=== PATIENT | male | born 1935 | race Hispanic/Latino ===

== ENCOUNTER 2016-11-24 10:01 | Outpatient (CLI) | payer MEDICARE, BC ==
[2016-11-24 12:05] LABS: #Basophils 0.1 thou/uL (0.0-0.2); #Eosinphils 0.4 thou/uL (0.0-0.7); #Lymphocytes 2.1 thou/uL (1.20-3.40); #Monocytes 0.6 thou/uL (0.11-0.59); #Neutrophils 3.7 thou/uL (1.40-6.50); %Basophils 1.6 % (0.0-1.0); %Eosinophils 6.4 % (0.0-10.0); %Lymphocytes 30.3 % (21.0-51.0); %Monocytes 8.4 % (0.0-10.0); Hematocrit 50.4 % (42.0-52.0); Mean Platelet Volume 7.7 fL (7.4-10.4); Red Blood Cell (RBC) Count 5.15 mill/uL (4.70-6.10)
[2016-11-24 12:11] LABS: Bilirubin Negative (Negative); Blood, Urine Negative (Negative); Glucose, Urine (Dipstick) Negative (Negative); Ketone, Urine Negative (Negative); Nitrite Negative (Negative); Protein, Urine (Dipstick) Negative (Neg-Trace)
[2016-11-24 12:12] LABS: Bacteria/HPF None Seen HPF (None Seen); Hyaline Casts/LPF 0-3 HYALINE CAST LPF (0-3 Hyaline); RBC/HPF 0-3 HPF (0-3); Squamous Epithelial None Seen HPF (0-3); WBC/HPF None Seen HPF (0-3)
[2016-11-24 12:13] LABS: PTT 32.6 SEC (22.9-36.1); Prothrombin Time 13.2 SEC (12.0-14.7)
[2016-11-24 12:35] LABS: Anion Gap 14 mmol/L (10-20); BUN (Urea Nitrogen) 17 mg/dL (8.4-25.7); Calc. Creatinine Clearance 0 mL/min (70-130); Carbon Dioxide 27 mmol/L (23-31); Chloride 102 mmol/L (98-107); Estimated GFR-MDRD 74
--- NOTE | 2016-11-24 12:53 | RAD ---
CHEST TWO VIEWS: History: Pre op. FINDINGS: No comparison. Cardiac silhouette and pulmonary vasculature are unremarkable. Mediastinum is midline . There is no confluent airspace consolidation, pneumothorax, or pleural fluid evident. Mediastinum is midline with aortic calcification. IMPRESSION: No active cardiopulmonary abnormalities are demonstrated. POS: [facility]
--- NOTE | 2016-11-25 06:17 | EKG ---
Test Reason : PREOP Blood Pressure : / mmHG Vent. Rate : 068 BPM Atrial Rate : 068 BPM P-R Int : 188 ms QRS Dur : 098 ms QT Int : 386 ms P-R-T Axes : 030 -09 -10 degrees QTc Int : 410 ms Normal sinus rhythm Voltage criteria for left ventricular hypertrophy Abnormal ECG No previous ECGs available Confirmed by RAFAT HUNG ([id number]) on 11/25/2016 6:16:52 AM Referred By: RAMON Confirmed By:RAFAT HUNG
== END 2016-11-24 10:02 | disposition home or self-care (01) ==
LOC: LABBT 10:01
PROVIDERS: ATTEND Orthopaedic Surgery Hand Surgery
DX: Z01.818 Encounter for other preprocedural examination (principal); M72.0 Palmar fascial fibromatosis [Dupuytren]
CPT/HCPCS: 71020; 80048; 81001; 85025; 85610; 85730; 93005; 93010

== ENCOUNTER 2016-11-26 10:22 | Day surgery (SDC) | payer MEDICARE, BC ==
[2016-11-24 10:30] VITALS: BMI 26.6
[2016-11-26] MEDS ORDERED: Fentanyl 100 MCG/2 ML VIAL ONE ×2 (12:55→14:26)
[2016-11-26] MEDS ORDERED: Midazolam HCl 2 mg/2 ml Vial ONE (12:55)
[2016-11-26] MEDS ORDERED: Bacitracin Zinc Ointment 30 gm TUBE ONE (13:00)
[2016-11-26] MEDS ORDERED: Bupivacaine PF 0.5% 30 ML VIAL ONE (13:00)
[2016-11-26] MEDS ORDERED: Betamet Acet/Betamet Na Ph 30 MG/5 ML VIAL ONE (16:09)
[2016-11-26] MEDS ORDERED: Ketorolac Tromethamine 30 MG/ML VIAL ONE (17:33)
[2016-11-26] MEDS ORDERED: Promethazine HCl 25 MG/ML VIAL SLOW IVP PRN (17:35)
[2016-11-26] MEDS ORDERED: Promethazine HCl 25 MG/ML VIAL IM PRN (17:35)
[2016-11-26] MEDS ORDERED: HYDROmorphone 2 MG/ML VIAL SLOW IVP PRN (17:35)
[2016-11-26] MEDS ORDERED: Ondansetron HCl/PF 4 MG/2 ML Vial IVP PRN (17:35)
--- NOTE | 2016-11-27 10:55 | OP ---
DATE OF SURGERY: 11/26/2016 SURGEON: Jostin Blue MD ANESTHESIA: General LMA technique, [place] Anesthesia augmented by 12 mL 0.5% Marcaine block lynne r incisions. PREOPERATIVE DIAGNOSES: 1. Thumb Dupuytren's contracture, moderate. 2. Left long finger, severe Dupuytren's contracture proximal interphalangeal joint. 3. Left ring finger, mild contracture Dupuytren's. 4. 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 FINDINGS: Complex cords at the small finger and long finger with a very tight skin over the ring fi nger and joint abnormality at the small finger preventing complete reduction. COMPLICATIONS: None. PROCEDURES PERFORMED: A. At this thumb, 1. Subtotal palmar fasciectomy. 2. Radial nerve neuroplasty thumb. B. At the long finger, 1. Subtotal palmar fasciectomy. 2. Digital nerve neuroplasty, radial. 3. Digital nerve neuroplasty, ulnar. C. At the ring finger, left 1. Subtotal palmar fasciectomy. 2. Z-plasty. 3. Ulnar nerve neuroplasty, digital. D. At the small finger, 1. Subtotal palmar fasciectomy. 2. Digital nerve neuroplasty, ulnar. 3. Digital nerve neuroplasty, radial. COMPLICATIONS: None. TOURNIQUET TIMES: 1. 131 minutes. 2. 30 minutes, deflated. 3. Another 45 minutes inflation. ESTIMATED BLOOD LOSS: 20 mL. INJECTABLES: A 12 mL 0.5% Marcaine, luisa-incisional block technique. INDICATIONS: Patient had 2 previous releases and now reports pain with rapid loss ability to extend multiple digits. Failed conservative treatment. DESCRIPTION OF PROCEDURE: After successful general LMA technique, the limb was prepped and draped. Patient had the time out done appropriately, we outlined all the incisions. We basically followed some of his previous incisions which were carried through the skin and then injected the incisional area with the 0.5% Marcaine. The limb was exsanguinated, tourniquet inflated to 250 mmHg pressure. We began first with small finger where deformity was the greatest. We then followed the exact demetrius giulia, but extended cm proximal and 5 mm distal. Here, we were able to take our time, and finally sherif giang neurovascular bundles protected it, but he had a very complex cord with a ring finger connecti on under the web space to the middle phalanx, a central cord, from the A2 marie, and a very large s kin origin cord coming from the ulnar side. Each one had caused different changes in different port ions of the barraza and dissection on the distal neurovascular bundles. Finally, after formal neurop lasty, we were able to discern this neurovascular bundles completely in the course of the cord, prot ected now, and then excised the cord. It was here, however, that we noticed that there was some min or contracture and -40 degrees, no matter what we did passively so we continued to search for an add itional cord coming from the skin and once this was released, could achieve easily -30 degrees with satisfactory. The tourniquet to be deflated just on the small finger alone and small finger extra circulation even at the -30 degrees passive extension, we were able to achieve without spring back, and so we dresse d this wound with normal saline soaked gauze. We then approached the second most difficult area, wh ich would be his left long finger and here, he had a long complex cord as well that across the PIP j oint multiple levels and has only cord found here, but he did have his partial origin from the index finger so as to undermine the web space skin to remove the index finger cord without damaging the n erve. At this point, we then turned our attention to the thumb. We deflated tourniquet to achieve time deflation and then re-exsanguinated after 25 minutes to do at this time, we were able to close most of the wounds. The patient then had the zigzag Cholo-type incision outlined over the thumb where it was predomina ntly a radial side event, found neurovascular bundle radial side, protected it, and then incised the mass en bloc. Had full extension without subcutaneous changes after this. Finally, the ring finge r was approached as this was the least deformed, we used a straight incision over the volar flexion crease of PIP joint here, he had a 2-3 mm thick core that was approximately 3 cm long, we excised th is. It was then felt that recurrence might occur here, so we performed a Z-plasty as the skin was a major part of ignacio here, so we had a Z-plasty accomplished, 4 incisions, and at that point t o have hyperextension to +10 degrees PIP and MP joint. The incision complete hemostasis, was irrigated, and was closed with interrupted 4-0 nylon simple pattern. Bulky dressing was applied and all the fingers were in full extension or hyperextension of the PIP joint of the small finger, whic h remained flexed approximately 30 degrees in the splint. These digits were pink and the surgery wa s discussed with the to include the inability to achieve full extension of the small finger luis garza
== END 2016-11-26 19:40 ==
LOC: SDC 10:22
PROVIDERS: ATTEND Orthopaedic Surgery Hand Surgery
PROC: 0JNK0ZZ Release Left Hand Subcutaneous Tissue and Fascia, Open Approach (ICD-10-PCS; principal; 2016-11-26)
DX: M72.0 Palmar fascial fibromatosis [Dupuytren] (principal); E78.5 Hyperlipidemia, unspecified; Z86.73 Personal history of transient ischemic attack (TIA), and cerebral infarction without residual deficits; Z87.891 Personal history of nicotine dependence; Z98.41 Cataract extraction status, right eye; Z98.42 Cataract extraction status, left eye; Z96.1 Presence of intraocular lens; Z90.89 Acquired absence of other organs; Z98.890 Other specified postprocedural states; Z88.2 Allergy status to sulfonamides; Z88.8 Allergy status to other drugs, medicaments and biological substances; Z79.82 Long term (current) use of aspirin; Z79.84 Long term (current) use of oral hypoglycemic drugs; Z79.899 Other long term (current) drug therapy
CPT/HCPCS: J0702; J1170; J1885; J2250; J3010; S0020